=== PATIENT | male | born 1960 | race African-American/Black ===

== ENCOUNTER 2024-07-02 17:17 | Emergency (ER) | payer OTHER ==
[2024-07-02] MEDS ORDERED: Ketorolac Tromethamine 60 MG/2 ML VIAL ONE (18:13)
[2024-07-02] MEDS ORDERED: Dexamethasone 10 MG/ML VIAL ONE (18:13)
[2024-07-02 18:21] LABS: Influenza A by NAA Not Detected (NotDetected); Influenza B by NAA Not Detected (NotDetected); SARS-CoV-2 NAA Rapid Test DETECTED (NotDetected)
== END 2024-07-02 18:47 | disposition home or self-care (01) ==
LOC: MADERS 17:17
DX: U07.1 COVID-19 (principal); J20.9 Acute bronchitis, unspecified; I10 Essential (primary) hypertension
CPT/HCPCS: 71046; 96372; J1100; J1885